=== PATIENT | female | born 1970 | race Caucasian/White ===

== ENCOUNTER 2024-05-13 20:55 | Emergency (ER) | payer BC ==
[2024-05-13] MEDS: Lidocaine 1% with EPINEPHrine 1:100,000 10 ML MDV INJECT ONE (22:18)
[2024-05-13] MEDS: Lidocaine 2% Viscous Solution 15 ML UD PO ONE (23:36)
[2024-05-13] MEDS: Benzocaine 20% Topical Spray UD MUCMEM ONE (23:36)
== END 2024-05-13 23:42 | disposition left against medical advice (07) ==
LOC: MW.ED 20:55
DX: Z53.21 Procedure and treatment not carried out due to patient leaving prior to being seen by health care provider (principal)
CPT/HCPCS: A9270 ×2